=== PATIENT | female | born 1965 | race Caucasian/White ===

== ENCOUNTER 2023-10-26 09:47 | Emergency (ER) | payer OTHER ==
[2023-10-26 10:24] VITALS: BP 96/63; PULSE 82; RESP 18; TEMP 98.2; BMI 24.2
[2023-10-26] MEDS ORDERED: IBUPROFEN 400 MG TABLET (FP) PO ONE (11:06)
[2023-10-26] MEDS ORDERED: ACETAMINOPHEN 325 MG TABLET (FP) ONE (11:06)
[2023-10-26] MEDS: IBUPROFEN 400 MG TABLET (FP) PO ONE (11:09)
[2023-10-26] MEDS: ACETAMINOPHEN 325 MG TABLET (FP) PO ONE (11:10)
== END 2023-10-26 11:46 | disposition home or self-care (01) ==
LOC: FER 09:47
DX: R07.81 Pleurodynia (principal)
CPT/HCPCS: 71046-TC-FY; 99284-25